=== PATIENT | male | born 1960 | race Caucasian/White ===

== ENCOUNTER 2016-12-14 12:47 | Emergency (ER) | payer BC ==
--- NOTE | 2016-12-14 13:25 | EDM.PDOC ---
ED HPI GENERAL MEDICAL PROBLEM - General Chief Complaint: General Stated Complaint: COUGH,FEVER,CHILLS Time Seen by Provider: 12/14/16 12:52 - History of Present Illness INITIAL COMMENTS - FREE TEXT/NARRATIVE: HISTORY AND PHYSICAL: History of present illness: The patient is a 56-year-old male with a history of common variable immunodeficiency disorder which he follows with a Dr. Jenn Green at [facility] presents today with a three-day history of cough productive of phlegm feverish feelings without documented temperature chills and malaise. According to the patient he was diagnosed in 2014 and since that time he gives himself weekly immunoglobulin 15 g every Friday. The patient and the state that he has had multiple episodes of upper respiratory symptoms all of which were treated with Levaquin and he is presenting stating that this feels exactly the same. He has no abdominal complaints of chest pain nausea vomiting or diarrhea and no urinary complaints. He has no sore throat neck pain or back pain. He has no chest pain or shortness of breath. He says he always has a cough with some phlegm but it seems to be "chunky and more parson" in appearance than his usual. Patient states he has been eating and drinking normally. The patient has no local family doctor and checks and with Dr. Green with blood work every 6 months and sees her physically once a year. The patient states that all of his symptoms are very similar to prior episodes of infection secondary to his reduced immune status. He does not recall his last blood work. The patient states that he has not documented a fever at home but has felt very feverish and sweaty intermittently. Patient has a history of thymectomy in the past. Review of systems: As per history of present illness and below otherwise all systems reviewed and negative. Past medical history: As per history of present illness and as reviewed below otherwise noncontributory. Surgical history: As per history of present illness and as reviewed below otherwise noncontributory. Social history: No reported history of drug or alcohol abuse. Family history: As per history of present illness and as reviewed below otherwise noncontributory. Physical exam: Gen.: Well-developed well-nourished man who is nontoxic who moves easily in the ED. His vital signs have been reviewed by me and he is interactive. HEENT: Atraumatic, normocephalic, pupils reactive, negative for conjunctival pallor or scleral icterus, mucous membranes moist, throat clear, neck supple, nontender, trachea midline. TMs are slightly dull bilaterally and there is no discrete sinus tenderness cervical adenopathy or nuchal rigidity. Lungs: Clear to auscultation, breath sounds equal bilaterally, chest nontender. No worker breathing or sensory muscle use Heart: S1S2, regular, negative for clicks, rubs, or JVD. Abdomen: Soft, nondistended, nontender. Negative for masses or hepatosplenomegaly. Negative for costovertebral tenderness. Pelvis: Deferred Genitourinary: Deferred. Rectal: Deferred. Extremities: Atraumatic, negative for cords or calf pain. Neurovascular unremarkable. Neuro: Awake, alert, oriented. Cranial nerves II through XII unremarkable. Cerebellum unremarkable. Motor and sensory unremarkable throughout. Exam nonfocal. Skin: No evidence of any diaphoresis, normal turgor and no overt rashes or lesions are seen grossly Diagnostics: CBC CMP lactic acid UA urine culture blood cultures influenza swab chest x-ray Therapeutics: Patient was offered IV fluids and defers 1454: Case was discussed with the patient's physician at [facility], Dr. Jenn Green, who is aware of my testing results and agrees with Levaquin 750 mg daily for 14 days. She tells me that this patient does have extremely low immunoglobulin levels and that he does need to be covered with antibiotics for even these minor symptoms. I will give the patient and referral information to our clinic to have local follow-up. Impression: Bronchitis/URI with History of common variable immunodeficiency Definitive disposition and diagnosis as appropriate pending reevaluation and review of above. headache Pain Score (Numeric/FACES): 4 - Related Data Allergies Allergy/AdvReac Type Severity Reaction Status Date / Time No Known Allergies Allergy Verified 12/14/16 13:06 Home Meds: Home Meds Immunoglobulin 1 injection INJECT ASDIRECTED 12/14/16 [History] Past Medical History HEENT History: Reports: None Cardiovascular History: Reports: None Respiratory History: Reports: Pneumonia, Recurrent, Other (See Below) Other Respiratory History: lung collapse Gastrointestinal History: Reports: None Genitourinary History: Reports: None Musculoskeletal History: Reports: None Neurological History: Reports: None Psychiatric History: Reports: None Endocrine/Metabolic History: Reports: None Hematologic History: Reports: None Immunologic History: Reports: Other (See Below) 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 ED EXAM, GENERAL - Physical Exam Exam: See Below (See dictation) Course - Vital Signs Last Recorded V/S: Last Vital Signs Temp 36.2 C 12/14/16 13:06 Pulse 77 12/14/16 13:06 Resp 18 12/14/16 13:06 BP 143/85 H 12/14/16 13:06 Pulse Ox 97 12/14/16 13:06 - Orders/Labs/Meds Orders: Active Orders 24 hr Category Date Time Status Chest 2V [CR] Stat Exams 12/14/16 13:19 Taken CULTURE BLOOD [BC] Stat Lab 12/14/16 14:07 Received CULTURE BLOOD [BC] Stat Lab 12/14/16 14:21 Received CULTURE URINE [RM] Stat Lab 12/14/16 13:25 Received Blood Culture x2 Reflex Set [OM.PC] Stat Oth 12/14/16 13:19 Ordered Labs: Laboratory Tests 12/14/16 12/14/16 12/14/16 Range/Units 13:25 14:21 14:21 WBC 12.25 H (4.0-11.0) K/uL RBC 4.96 (4.50-5.90) M/uL Hgb 15.3 (13.0-17.0) g/dL Hct 44.7 (38.0-50.0) % MCV 90.1 (80.0-98.0) fL MCH 30.8 (27.0-32.0) pg MCHC 34.2 (31.0-37.0) g/dL RDW Std Deviation 46.5 (28.0-62.0) fl RDW Coeff of Robert 14 (11.0-15.0) % Plt Count 221 (150-400) K/uL MPV 10.20 (7.40-12.00) fL Neut % (Auto) 81.6 H (48.0-80.0) % Lymph % (Auto) 6.0 L (16.0-40.0) % [place] % (Auto) 11.7 (0.0-15.0) % Eos % (Auto) 0.5 (0.0-7.0) % Baso % (Auto) 0.2 (0.0-1.5) % Neut # (Auto) 10.0 H (1.4-5.7) K/uL Lymph # (Auto) 0.7 (0.6-2.4) K/uL [place] # (Auto) 1.4 H (0.0-0.8) K/uL Eos # (Auto) 0.1 (0.0-0.7) K/uL Baso # (Auto) 0.0 (0.0-0.1) K/uL Nucleated RBC % 0.0 /100WBC Nucleated RBCs # 0 K/uL Lactate 1.3 (0.20-2.00) mmol/L Sodium (136-146) mmol/L Potassium (3.5-5.1) mmol/L Chloride (98-110) mmol/L Carbon Dioxide (21-31) mmol/L BUN (6.0-23.0) mg/dL Creatinine (0.6-1.5) mg/dL Est Cr Clr Drug Dosing mL/min Estimated GFR (MDRD) ml/min Glucose (60-110) mg/dL Calcium (8.8-10.8) mg/dL Total Bilirubin (0.1-1.5) mg/dL AST (5-40) IU/L ALT (8-54) IU/L Alkaline Phosphatase (40-150) Total Protein (6.0-8.0) g/dL Albumin (3.5-5.0) g/dL Globulin (2.0-3.5) g/dL Albumin/Globulin Ratio (1.3-2.8) Urine Color YELLOW Urine Appearance CLEAR Urine pH 6.0 (5.0-8.0) Ur Specific [place] 1.025 (1.001-1.035) Urine Protein NEGATIVE (NEGATIVE) mg/dL Urine Glucose (UA) NEGATIVE (NEGATIVE) mg/dL Urine Ketones NEGATIVE (NEGATIVE) mg/dL Urine Occult Blood NEGATIVE (NEGATIVE) Urine Nitrite NEGATIVE (NEGATIVE) Urine Bilirubin NEGATIVE (NEGATIVE) Urine Urobilinogen 0.2 (<2.0) EU/dL Ur Leukocyte Esterase NEGATIVE (NEGATIVE) Urine RBC 0-3 (0-2/HPF) Urine WBC 1-4 (0-5/HPF) Ur Epithelial Cells RARE (NONE-FEW) Urine Bacteria FEW (NEGATIVE) Urine Mucus MODERATE (NONE-MOD) 12/14/16 Range/Units 14:21 WBC (4.0-11.0) K/uL RBC (4.50-5.90) M/uL Hgb (13.0-17.0) g/dL Hct (38.0-50.0) % MCV (80.0-98.0) fL MCH (27.0-32.0) pg MCHC (31.0-37.0) g/dL RDW Std Deviation (28.0-62.0) fl RDW Coeff of Robert (11.0-15.0) % Plt Count (150-400) K/uL MPV (7.40-12.00) fL Neut % (Auto) (48.0-80.0) % Lymph % (Auto) (16.0-40.0) % [place] % (Auto) (0.0-15.0) % Eos % (Auto) (0.0-7.0) % Baso % (Auto) (0.0-1.5) % Neut # (Auto) (1.4-5.7) K/uL Lymph # (Auto) (0.6-2.4) K/uL [place] # (Auto) (0.0-0.8) K/uL Eos # (Auto) (0.0-0.7) K/uL Baso # (Auto) (0.0-0.1) K/uL Nucleated RBC % /100WBC Nucleated RBCs # K/uL Lactate (0.20-2.00) mmol/L Sodium 143 (136-146) mmol/L Potassium 3.8 (3.5-5.1) mmol/L Chloride 109 (98-110) mmol/L Carbon Dioxide 25 (21-31) mmol/L BUN 16 (6.0-23.0) mg/dL Creatinine 0.9 (0.6-1.5) mg/dL Est Cr Clr Drug Dosing 100.59 mL/min Estimated GFR (MDRD) > 60.0 ml/min Glucose 94 (60-110) mg/dL Calcium 9.0 (8.8-10.8) mg/dL Total Bilirubin 0.6 (0.1-1.5) mg/dL AST 31 (5-40) IU/L ALT 25 (8-54) IU/L Alkaline Phosphatase 73 (40-150) Total Protein 7.3 (6.0-8.0) g/dL Albumin 4.0 (3.5-5.0) g/dL Globulin 3.3 (2.0-3.5) g/dL Albumin/Globulin Ratio 1.2 L (1.3-2.8) Urine Color Urine Appearance Urine pH (5.0-8.0) Ur Specific [place] (1.001-1.035) Urine Protein (NEGATIVE) mg/dL Urine Glucose (UA) (NEGATIVE) mg/dL Urine Ketones (NEGATIVE) mg/dL Urine Occult Blood (NEGATIVE) Urine Nitrite (NEGATIVE) Urine Bilirubin (NEGATIVE) Urine Urobilinogen (<2.0) EU/dL Ur Leukocyte Esterase (NEGATIVE) Urine RBC (0-2/HPF) Urine WBC (0-5/HPF) Ur Epithelial Cells (NONE-FEW) Urine Bacteria (NEGATIVE) Urine Mucus (NONE-MOD) Departure - Departure Time of Disposition: 15:05 Disposition: Home, Self-Care 01 Condition: Good Clinical Impression: Common variable immunodeficiency Upper respiratory tract infection Qualifiers: URI type: unspecified URI Qualified Code(s): J06.9 - Acute upper respiratory infection, unspecified - Discharge Information Referrals: PCP,None [Primary Care Provider] - Forms: ED Department Discharge Additional Instructions: The following information is given to patients seen in the emergency department who are being discharged to home. This information is to outline your options for follow-up care. We provide all patients seen in our emergency department with a follow-up referral. The need for follow-up, as well as the timing and circumstances, are variable depending upon the specifics of your emergency department visit. If you don't have a primary care physician on staff, we will provide you with a referral. We always advise you to contact your personal physician following an emergency department visit to inform them of the circumstance of the visit and for follow-up with them and/or the need for any referrals to a consulting specialist. The emergency department will also refer you to a specialist when appropriate. This referral assures that you have the opportunity for followup care with a specialist. All of these measure are taken in an effort to provide you with optimal care, which includes your followup. Under all circumstances we always encourage you to contact your private physician who remains a resource for coordinating your care. When calling for followup care, please make the office aware that this follow-up is from your recent emergency room visit. If for any reason you are refused follow-up, please contact the [facility] emergency department at and ask to speak to the emergency department charge nurse. [facility] Primary [facility]- Internal Medicine and Family [address] [address] Please take antibiotics as prescribed until they're finished. Please call and connect with our clinic for a follow-up appointment this week and please also touch base with your doctor at [facility] Dr. Green this week. Use Tylenol and ibuprofen for fevers and return to ER as needed and as discussed. If for any reason the culture results come back with an alternative care plan you will be contacted - My Orders Last 24 Hours: My Active Orders 12/14/16 13:19 Chest 2V [CR] Stat Blood Culture x2 Reflex Set [OM.PC] Stat 12/14/16 13:25 CULTURE URINE [RM] Stat 12/14/16 14:07 CULTURE BLOOD [BC] Stat 12/14/16 14:21 CULTURE BLOOD [BC] Stat - Assessment/Plan Last 24 Hours: My Active Orders 12/14/16 13:19 Chest 2V [CR] Stat Blood Culture x2 Reflex Set [OM.PC] Stat 12/14/16 13:25 CULTURE URINE [RM] Stat 12/14/16 14:07 CULTURE BLOOD [BC] Stat 12/14/16 14:21 CULTURE BLOOD [BC] Stat
[2016-12-14 14:59] LABS: CHLORIDE,CL 109 mmol/L (98-110); SODIUM,NA 143 mmol/L (136-146)
[2016-12-14 15:17] VITALS: BP 131/83
--- NOTE | 2016-12-16 10:19 | CR ---
EXAM DATE: 12/14/16 PATIENT'S AGE: 56 Patient: BURKE URIAS Facility: [place], [place] Site . Site : [id number] Study: XRay Chest [id number] 1:37:56 PM Ordering Physician: Johann Santana Final Report: INDICATION: Pain. Short of breath. Technique: Two-view chest. Findings: Status post median sternotomy. Heart and mediastinum are normal in size and configuration. Pulmonary vessels are normal. Lungs are clear. No pleural fluid. No acute bony abnormality. Impression: No acute chest disease. Dictated by Dayna Lobo MD @ Dec 14 2016 1:52PM (Electronic Signature) Report Signed by Proxy. ALBER
== END 2016-12-14 15:15 | disposition home or self-care (01) ==
LOC: MW.ED 12:47
DX: J06.9 Acute upper respiratory infection, unspecified (principal); D83.9 Common variable immunodeficiency, unspecified
CPT/HCPCS: 36415; 71020; 71020-26; 80053; 81001; 83605; 85025; 87040; 87086; 87804; 99283